=== PATIENT | male | born 1960 | race Caucasian/White ===

== ENCOUNTER 2016-09-10 19:29 | Emergency (ER) | payer OTHER ==
[~2016-09-10] VITALS: Ht 180.3 cm; Wt 109.5 kg
[~2016-09-10 19:29] MED LIST: ASPI81TA28 PO; FAMO20TA11 PO; LISI20TA55 PO; MELO15TA3 PO; METO1TAB69 PO; MULT-506 PO; SERT-234 PO
[2016-09-10 19:35] VITALS: BP 168/100; PULSE 64; TEMP 36.7; O2SAT 97; Ht 180.3 cm; Wt 109.5 kg
--- NOTE | 2016-09-10 19:52 | EMERGENCY ROOM VISIT NOTE ---
ED Visit Note First contact with patient: 19:41 CHIEF COMPLAINT: Finger laceration HISTORY OF PRESENT ILLNESS: This 56-year-old male patient presents to the emergency department ambulatory after cutting the right third finger just prior to arrival. The patient states that he was cutting brass with a chop saw when a bug landed on his back, causing him to jump and cut his finger with a saw. The bleeding has stopped. Denies weakness or numbness of the finger. The patient has full range of motion of the fingers. The patient rates the pain as sharp and in 7/10. The patient denies any other injuries. The patient's tetanus shot is up to date. REVIEW OF SYSTEMS: A 6 system review of systems was completed with positives and pertinent negatives listed in the HPI. ALLERGIES: No known drug allergies MEDICATIONS: See med list PMH: GERD, hypertension SOCIAL HISTORY: The patient lives locally with his family. He is a smoker. He denies alcohol use. PHYSICAL EXAM: Vital Signs: Reviewed Nurse's notes, vital signs stable. GENERAL : This is a 56-year-old male, in no acute distress, well developed, well nourished. SKIN: There is a 1.5 cm long laceration on the distal aspect of the right third finger. It does not extend through the nail. The edges gape apart with traction. There is no foreign material in the wound and it looks clean. There is minimal bleeding. No deep structures such as tendons, bones, or significant blood vessels are seen in the base of the wound. Extension and flexion of the finger is full and strong. Full range of motion of the wrist and other fingers. Capillary refill less than 2 seconds. Normal sensation to light and sharp touch. RADIOGRAPHIC FINDINGS: RIGHT THIRD FINGER 3 VIEWS CLINICAL HISTORY: Right third finger pain status post trauma PATIENT CUT THE TIP OF FINGER ON SAW COMPARISON: None. DISCUSSION: 3 views reveal no acute fractures or dislocations. There is a tiny density adjacent the volar base of the middle phalanx. This is felt to be old given the reported mechanism of injury. No radiopaque foreign bodies are visualized. IMPRESSION: No acute fractures or dislocations. No radiopaque foreign bodies identified. EMERGENCY DEPARTMENT COURSE: I examined the patient. X-ray of the finger was obtained and read by radiology with no acute fractures of the finger. Verbal consent was obtained to perform the procedure. Using sterile technique the wound was cleansed with Betadine. A 1-1 solution of bupivacaine and ml of 1% buffered lidocaine was used to perform a digital block to anesthetize the patient. The area was sterilely draped. Once the patient was anesthetized, the wound was copiously irrigated under pressure with sterile saline. The wound was explored and there were no deep structures injured. The laceration was repaired using 7 simple interrupted 5-0 nylon sutures. The patient tolerated the procedure well. Hemostasis was achieved. The area was cleaned with sterile saline and dressed with bacitracin ointment and bandage. The patient was given a prescription for prophylactic Keflex. The patient was discharged home in good condition. DIAGNOSIS: Finger laceration Problem List Medical Problems: (1) ALCOHOL ABUSE-UNSPEC Status: Chronic (2) HYPERTENSION NOS Status: Chronic (3) VARIANTS OF MIGRAINE W/O INTRACTABLE MIGRAINE Status: Chronic Current/Historical Medications Scheduled Amlodipine (Norvasc), 5 MG PO DAILY Aspirin (Aspirin Ec), 81 MG PO DAILY Cephalexin Monohydrate (Keflex), 500 MG PO QID Divalproex Sodium (Depakote), 500 MG PO DAILY Famotidine (Pepcid), 20 MG PO DAILY Lisinopril/Hctz (Prinzide 20-25MG), 2 TAB PO DAILY Lisinopril/Hctz (Zestoretic 20MG/12.5MG), 2 TAB PO DAILY Meloxicam (Mobic), 15 MG PO DAILY Metoprolol Succ (Toprol Xl) (Toprol-Xl ), 100 MG PO DAILY Multivitamin (Multivitamin), 1 TAB PO DAILY Sertraline (Zoloft), 150 MG PO DAILY Simvastatin (Zocor), 20 MG PO QPM Allergies Coded Allergies: No Known Allergies (Unverified , 02/06/13) Vital Signs Date Time Temp Pulse Resp B/P Pulse Ox O2 Delivery O2 Flow Rate FiO2 09/10/16 19:35 36.7 64 18 168/100 97 Room Air Departure Information Impression Primary Impression: Finger laceration Dispostion Home / Self-Care Condition GOOD Prescriptions Cephalexin Monohydrate (Keflex) 500 Mg Cap 500 MG PO QID for 5 Days, #20 CAP Prov: Janie Fleming ., ANDREW 09/10/16 Referrals Mike Suazo Jr,D.O. (PCP) Patient Instructions My [facility] Additional Instructions You have received 7 sutures on your finger. These sutures are NOT dissolvable and WILL need to be removed by a health care provider in 10-12 days. You can return to the Emergency Department or contact your Primary Care Provider to have the sutures removed. Proper wound care is essential for adequate wound healing and infection prevention. You can shower and clean the wound with soap and water. Do not scour over the wound, pat dry with a towel. Do not submerse the wound (i.e. bathe or dish wash) until the sutures have been removed. You can use an antibiotic ointment with a dressing over the wound for the next 3-4 days. After this time you may leave the wound dry and open to the air. If crust develops over the wound you can use a Q-tip to apply a 1:1 peroxide:water solution to clean the wound. Look for signs of infection of the wound including: increased pain, swelling, foul discharge, streaking, or increased temperature. If any of these are noticed you should return to the Emergency Department for further assessment and treatment. As with any laceration you may have received nerve damage to the surrounding tissues. This damage may or may not be permanent. You should keep the area covered with sunscreen for the first 6 months to 1 year when at risk for exposure to help minimize scarring. You can also use scar reducing creams or Vitamin E oil to help minimize scarring. For pain control, you can use the following [id number] medicines (if >12 yo): - Regular strength (325mg/tab) Tylenol (acetaminophen) 2 tabs every 4-6 hours as needed. Do not exceed 12 tablets in a 24 hour period. Avoid taking more than 4 grams (4000 mg) of Tylenol per day. This includes any other sources of acetaminophen you may take on a regular basis. - Regular strength (200 mg/tab) Advil (ibuprofen) 1-2 tabs every 4-6 hours as needed. Do not exceed a dose of 3200 mg per day. Return to the emergency department if your symptoms worsen despite treatment course outlined above. Problem Qualifiers Primary Impression: Finger laceration Encounter type: initial encounter Qualified Codes: S61.219A - Laceration without foreign body of unspecified finger without damage to nail, initial encounter
[2016-09-10] MEDS ORDERED: XYLOCAINE 1%/SOD BICARB 20 ML VIAL INFIL ONE (20:00)
[2016-09-10] MEDS ORDERED: BUPIVACAINE 0.5 % 5 MG/1 ML MPF 30ML VIAL INFIL ONE (20:00)
--- NOTE | 2016-09-10 20:14 | DIAGNOSTIC IMAGING REPORT ---
RIGHT THIRD FINGER 3 VIEWS CLINICAL HISTORY: Right third finger pain status post trauma PATIENT CUT THE TIP OF FINGER ON SAW COMPARISON: None. DISCUSSION: 3 views reveal no acute fractures or dislocations. There is a tiny density adjacent the volar base of the middle phalanx. This is felt to be old given the reported mechanism of injury. No radiopaque foreign bodies are visualized. IMPRESSION: No acute fractures or dislocations. No radiopaque foreign bodies identified. Electronically signed by: Francisco Linn M.D. 09/10/2016 8:13 PM Dictated Date/Time: 09/10/2016 8:11 PM
[2016-09-10] MEDS ORDERED: LISI-787 PO (20:43)
[2016-09-10] MEDS ORDERED: SIMV20TA2 PO (20:43)
[2016-09-10] MEDS ORDERED: AMLO-110 PO (20:45)
[2016-09-10] MEDS ORDERED: CEPHALEXIN MONOHYDRATE 250 MG CAP PO ONE (20:45)
[2016-09-10] MEDS ORDERED: DIVA500T59 PO (20:45)
[2016-09-10] MEDS ORDERED: CEPH500C PO (20:52)
[2016-09-10] MEDS ORDERED: METO100T14 PO (20:58)
== END 2016-09-10 21:01 | disposition home or self-care (01) ==
LOC: C.EDB 19:30 → C.EDD 21:01
DX: S61.212A Laceration without foreign body of right middle finger without damage to nail, initial encounter (principal); W27.0XXA Contact with workbench tool, initial encounter; I10 Essential (primary) hypertension; F17.200 Nicotine dependence, unspecified, uncomplicated; Z79.82 Long term (current) use of aspirin

== ENCOUNTER 2016-12-07 15:27 | Emergency (ER) | payer OTHER ==
[~2016-12-07] VITALS: Ht 177.8 cm; Wt 113.2 kg
[~2016-12-07 15:27] MED LIST changes: +AMLO-110 PO; +DIVA500T59 PO; +LISI-787 PO; -LISI20TA55 PO; +METO100T14 PO; -METO1TAB69 PO; -MULT-506 PO; +SIMV20TA2 PO
[2016-12-07 15:36] VITALS: Ht 177.8 cm; Wt 113.2 kg
[2016-12-07] MEDS ORDERED: XYLOCAINE 1%/SOD BICARB 20 ML VIAL INFIL ONE (15:45)
--- NOTE | 2016-12-07 15:47 | EMERGENCY ROOM VISIT NOTE ---
ED Visit Note First contact with patient: 15:39 CHIEF COMPLAINT: Right second finger laceration at work today HISTORY OF PRESENT ILLNESS: Patient is a left-hand dominant 56-year-old white male who presents to the emergency department for evaluation of a laceration to his right second finger that he sustained at work earlier today. He accidentally cut himself on a sharp piece of metal 2 hours ago. A coworker applied a bandage and he was able to get the bleeding to stop. Denies weakness or numbness of the finger. He reports he had a similar laceration just a few months ago. REVIEW OF SYSTEMS: NEUROLOGICAL: No headache, change in mental status, weakness, numbness, or dizziness. GENERAL: No fever or chills, easy fatigue, loss of appetite, or significant weight change. PMH: Electronic medical records are reviewed and summarized as above/below. See Problem List. His tetanus is up-to-date. SOCIAL HISTORY: Patient lives at home. PHYSICAL EXAM: Vital Signs: Reviewed Nurse's notes. There is a 2 cm long laceration on the finger pad of the right second finger. The edges gape apart with traction. There is no foreign material in the wound and it looks clean. There is no bleeding. No deep structures such as tendons or nerves are seen in the base of the wound. Extension and flexion of the finger is full and strong. EMERGENCY DEPARTMENT COURSE: Using sterile technique, saline and Betadine cleansing, and 1% lidocaine anesthesia, the laceration was repaired with 7, 5-0 nylon sutures. I do not suspect retained foreign body, nerve, vascular or tendinous injury. Problem List Medical Problems: (1) ALCOHOL ABUSE-UNSPEC Status: Chronic (2) HYPERTENSION NOS Status: Chronic (3) VARIANTS OF MIGRAINE W/O INTRACTABLE MIGRAINE Status: Chronic Current/Historical Medications Scheduled Amlodipine (Norvasc), 5 MG PO DAILY Aspirin (Aspirin Ec), 81 MG PO DAILY Divalproex Sodium (Depakote), 500 MG PO DAILY Famotidine (Pepcid), 20 MG PO DAILY Lisinopril/Hctz (Zestoretic 20MG/12.5MG), 2 TAB PO DAILY Meloxicam (Mobic), 15 MG PO DAILY Metoprolol Tartrate (Lopressor) (Lopressor), 100 MG PO BID Sertraline (Zoloft), 150 MG PO DAILY Simvastatin (Zocor), 20 MG PO QPM Allergies Coded Allergies: No Known Allergies (Unverified , 02/06/13) Vital Signs Date Time Temp Pulse Resp B/P Pulse Ox O2 Delivery O2 Flow Rate FiO2 12/07/16 15:36 53 18 142/82 90 Room Air Departure Information Impression Primary Impression: Laceration of finger Additional Impression: Work related injury Referrals No Doctor, Assigned (PCP) Patient Instructions My [facility] Additional Instructions Keep wound clean and dry. Do not allow any crusting or dried blood to accumulate on sutures. If this occurs, use a 1:1 solution of hydrogen peroxide/ water on a Q-tip to clean the wound. Use an antibiotic ointment for 3-4 days, then let wound dry. Suture removal in 12-14 days. Return sooner for any signs of infection (increasing redness, swelling, drainage). Ice and elevate for swelling and pain. Ibuprofen 600 mg and Tylenol 1000 mg every 6 hrs for pain. Problem Qualifiers
[2016-12-07 16:30] VITALS: BP 135/85; PULSE 54; O2SAT 94
[2016-12-07] MEDS ORDERED: METH2.5T PO (16:38)
== END 2016-12-07 16:31 | disposition home or self-care (01) ==
LOC: C.EDB 15:29 → C.EDD 16:31
DX: S61.210A Laceration without foreign body of right index finger without damage to nail, initial encounter (principal); W26.8XXA Contact with other sharp object(s), not elsewhere classified, initial encounter; I10 Essential (primary) hypertension; Z79.82 Long term (current) use of aspirin; Z79.899 Other long term (current) drug therapy

== ENCOUNTER → 2017-04-03 | Outpatient (CLI) | payer OTHER ==
[~2017-04-03] MED LIST changes: +METH2.5T PO
[2017-04-03 18:54] LABS: ALT/SGPT 73 U/L (12-78); AST/SGOT 30 U/L (15-37); BLOOD UREA NITROGEN 30 mg/dl (7-18); BUN/CREATININE RATIO 30.8 (10-20); CARBON DIOXIDE 29 mmol/L (21-32); CHLORIDE 107 mmol/L (98-107); CREATININE 0.96 mg/dl (0.60-1.40); GLUCOSE 98 mg/dl (70-99); POTASSIUM 3.8 mmol/L (3.5-5.1); SODIUM 141 mmol/L (136-145)
[2017-04-03 19:50] LABS: BASO % 1.2 %; BASO ABS # 0.08 K/uL (0-0.2); COMPLETE YES; EOS % 5.2 %; HEMATOCRIT 41.2 % (42-52); IG% 0.1 %; LYMPH % 40.5 %; LYMPH ABS # 2.78 K/uL (1.2-3.4); MEAN CELL VOLUME 106.5 fL (80-100); MEAN CORPUSCULAR HEMOGLOBIN 39.5 pg (25-34); MEAN CORPUSCULAR HGB CONC 37.1 g/dl (32-36); MONO % 9.2 %; NEUT % 43.8 %; PLATELET COUNT 152 K/uL (130-400); RED BLOOD COUNT 3.87 M/uL (4.7-6.1); WHITE BLOOD COUNT 6.87 K/uL (4.8-10.8)
== END | disposition home or self-care (01) ==
LOC: C.LAB 18:13
DX: M19.90 Unspecified osteoarthritis, unspecified site (principal)

== ENCOUNTER → 2017-12-16 | Outpatient (CLI) | payer OTHER ==
[2017-12-16 09:33] LABS: BASO % 1.6 %; BASO ABS # 0.07 K/uL (0-0.2); EOS % 5.2 %; EOS ABS # 0.22 K/uL (0-0.5); HEMATOCRIT 40.3 % (42-52); HEMOGLOBIN 14.8 g/dL (14.0-18.0); IG# 0.01 K/uL (0.00-0.02); LYMPH % 35.7 %; LYMPH ABS # 1.52 K/uL (1.2-3.4); MEAN CELL VOLUME 105.2 fL (80-100); MEAN CORPUSCULAR HEMOGLOBIN 38.6 pg (25-34); MEAN CORPUSCULAR HGB CONC 36.7 g/dl (32-36); MEAN PLATELET VOLUME 11.9 fL (7.4-10.4); NEUT % 50.3 %; NEUT ABS # 2.14 K/uL (1.4-6.5); PLATELET COUNT 140 K/uL (130-400); RED CELL DISTRIBUTION WIDTH CV 16.5 % (11.5-14.5); RED CELL DISTRIBUTION WIDTH SD 62.7 fL (36.4-46.3); WHITE BLOOD COUNT 4.26 K/uL (4.8-10.8)
[2017-12-16 09:58] LABS: BLOOD UREA NITROGEN 21 mg/dl (7-18); CREATININE 0.72 mg/dl (0.60-1.40); GLUCOSE 134 mg/dl (70-99)
[2017-12-16 09:59] LABS: AST/SGOT 35 U/L (15-37); CALCIUM 8.5 mg/dl (8.5-10.1); CARBON DIOXIDE 30 mmol/L (21-32); POTASSIUM 4.1 mmol/L (3.5-5.1); SODIUM 141 mmol/L (136-145)
[2017-12-16 10:02] LABS: ALT/SGPT 81 U/L (12-78); CHOLESTEROL 111 mg/dl (0-200); LDL CHOLESTEROL CALCULATED 47 mg/dl
[2017-12-16 10:51] LABS: HEP C IGG 13 YRS+OLDER_RFLX NEG (NEG)
[2017-12-20 07:26] LABS: QUANTIF MITOGEN-NIL >10.00 IU/ML; QUANTIFERON NEGATIVE (NEGATIVE); QUANTIFERON NIL 0.03 IU/ML
== END | disposition home or self-care (01) ==
LOC: C.LAB 09:04
DX: L40.50 Arthropathic psoriasis, unspecified (principal)

== ENCOUNTER 2021-12-13 09:02 | Inpatient (IN) ==
[2021-12-13] MEDS ORDERED: SODIUM CHLORIDE 0.9% 1000ML 1,000 ML IV STA (09:23)
--- NOTE | 2021-12-13 09:27 | Emergency Department Note ---
Impression & Plan Influenza, Breath shortness ED Provider Note NAME: MIMA PEREZ AGE: 61 SEX: M : 1960 ARRIVES VIA: Walk-In INFORMANT: Patient ED PROVIDER(S): Leander Romero DO CHIEF COMPLAINT: cough and fever HPI: Patient is a 61-year-old male with a past medical history of hypertension, hyperlipidemia that presents to the ER for symptoms that started 3 days ago. He admits to cough, runny nose, and congestion. He has been having fevers of 101. Associated with this he has had some shortness of breath. He denies any belly pain, nausea, vomiting, or diarrhea. He does have some dysuria but denies any urgency or frequency. Does not believe that he has been around anybody has been sick recently. No other exacerbating or remitting factors that he can think of. ROS: See above HPI for pertinent positives & negatives. A total of 10 systems reviewed and were otherwise negative. PAST MEDICAL HISTORY:See Below PAST SURGICAL HISTORY:See Below FAMILY HISTORY:See Below SOCIAL HISTORY:See Below HOME MEDICATIONS:See Below ALLERGIES:See Below VITALS:See Below PHYSICAL EXAMINATION: GENERAL: Sitting up in bed, alert, well appearing, well nourished, no distress, cough EYE EXAM: normal conjunctiva. PERRL and EOM's grossly intact. OROPHARYNX: no exudate, no erythema, lips, buccal mucosa, and tongue normal and mucous membranes are moist NECK: supple, no nuchal rigidity, no adenopathy, non-tender LUNGS: Clear to auscultation. Normal chest wall mechanics HEART: no murmurs, S1 normal and S2 normal ABDOMEN: abdomen soft, non-tender, normo-active bowel sounds, no masses, no rebound or guarding. UPPER EXTREMITIES: upper extremities are grossly normal. LOWER EXTREMITIES: No pitting edema. NEURO EXAM: Normal sensorium, cranial nerves II-XII grossly intact, normal speech, no gross weakness of arms, no gross weakness of legs. MEDICAL DECISION MAKING: Patient is a 61-year-old male who presents ER for upper respiratory symptoms and short of breath. He is found be hypoxic at 85 to 86% on room air. He was placed on 2 to 3 L nasal cannula. Trended back up to low 90s. IV was established blood work was obtained. Labs show no significant leukocytosis or anemia. BMP along with LFTs bilirubin lipase was unremarkable. Troponin was negative. COVID was negative. Flu a positive. Valproic was low. He was discussed with the hospitalist and admitted on nasal cannula for further work- up. Chest x-ray was obtained and CT of the chest was obtained due to the hilar adenopathy which was unremarkable. Does show diffuse interstitial pneumonitis likely viral and consequently was not covered with antibiotics. Triage Nursing notes reviewed. Limited review of prior medical records performed Vital Signs: reviewed and remarkable for HTN Differential diagnosis: Differential diagnoses includes but is not limited to pneumonia, bronchitis, COPD/Asthma exacerbation, pneumothorax, pulmonary embolism, congestive heart failure, acute coronary syndrome ER treatment provided: See below Diagnostics interpreted by me: ECG: Sinus bradycardia rate of 52 Normal axis No PVCs QTC 420 Cardiac Monitoring: An order was placed for continuous cardiac monitoring. The monitor shows a rate of 53 with sinus rhythm. Laboratory studies: As stated above and show below. Imaging studies: CT of the chest as described above Portable AP of chest was unremarkable Consultation(s): Discussed with hospitalist for further evaluation Dr. Crandall Procedures: none Critical Care: I have personally spent 33 minutes of critical care time in the direct management of this patient. This includes bedside care, interpretation of diagnostic studies, and testing, discussion with consultants, patient, and family members, and other required patient management activities. This 33 minutes is in excess of all separately billable procedures. Past Med/Surg History Medical History (Updated 12/13/21 @ 13:31 by Nabil Schmidt MD) Aldridge's esophagus Bipolar disorder Diabetes mellitus GERD (gastroesophageal reflux disease) Hyperlipidemia Hypertension Obesity (BMI 30-39.9) Psoriatic arthritis Social History Smoking Status: Current every day smoker Tobacco Type: Cigarettes Feels Safe at Home: Yes Allergies Allergies Allergy/AdvReac Type Severity Reaction Status Date / Time No Known Allergies Allergy Verified 12/13/21 10:05 Home Meds Home Medications Medication Instructions Recorded Confirmed adalimumab 10 mg/0.1 mL See Rx Instructions .ROUTE .COMPLEX 01/21/20 12/13/21 subcutaneous syringe kit (Humira(CF)) amlodipine 5 mg tablet 5 mg PO QAM 01/21/20 12/13/21 aspirin 81 mg tablet,delayed 81 mg PO QAM 01/21/20 12/13/21 release atorvastatin 20 mg tablet 20 mg PO HS 01/21/20 12/13/21 celecoxib 100 mg capsule 100 mg PO BID 01/21/20 12/13/21 divalproex 500 mg tablet,extended 500 mg PO HS 01/21/20 12/13/21 release 24 hr lisinopril 20 2 tab PO QAM 01/21/20 12/13/21 mg-hydrochlorothiazide 12.5 mg tablet metoprolol tartrate 100 mg tablet 100 mg PO BID 01/21/20 12/13/21 omeprazole 40 mg capsule,delayed 40 mg PO QAM 01/21/20 12/13/21 release empagliflozin 25 mg tablet 25 mg PO QAM 12/13/21 12/13/21 (Jardiance) famotidine 40 mg tablet 40 mg PO QAM 12/13/21 12/13/21 metformin 500 mg tablet,extended 1,000 mg PO BID 12/13/21 12/13/21 release 24 hr Results & Data (ED) Vital Signs Vital Signs - 24 hr 12/13/21 09:08 12/13/21 09:51 12/13/21 11:00 Pulse Rate 54 L Pulse Rate [Apical] 47 L 47 L Respiratory Rate 20 12 20 Respiratory Effort / Characteristics Non-Labored Respiratory Depth Normal Respiratory Pattern Blood Pressure 183/82 H Blood Pressure [Right Arm] 180/94 H 144/82 H Blood Pressure Mean 115 Blood Pressure Mean [Right Arm] 122 102 Pulse Oximetry 93 92 93 Oxygen Delivery Method Room Air Room Air Room Air Oxygen Flow Rate Sepsis Recent Fever Within 48 Hours No Sepsis New/Unexplained Change in Mental Status N/A Sepsis Action Taken by Nursing No Action Required 12/13/21 12:15 12/13/21 14:30 Pulse Rate Pulse Rate [Apical] 46 L 51 L Respiratory Rate 15 22 Respiratory Effort / Characteristics Non-Labored Spontaneous Respiratory Depth Normal Respiratory Pattern Regular Blood Pressure Blood Pressure [Right Arm] 142/85 H Blood Pressure Mean Blood Pressure Mean [Right Arm] 104 Pulse Oximetry 87 L 94 Oxygen Delivery Method Room Air Nasal Cannula Oxygen Flow Rate 3 Sepsis Recent Fever Within 48 Hours Sepsis New/Unexplained Change in Mental Status Sepsis Action Taken by Nursing Laboratory Data Result diagrams: 12/13/21 09:40 12/13/21 09:40 Lab Results 12/13/21 12/13/21 12/13/21 Range/Units 09:40 09:40 09:40 WBC 5.81 (4.8-10.8) K/uL RBC 4.29 L (4.7-6.1) M/uL Hgb 16.9 (14.0-18.0) g/dL Hct 45.9 (42-52) % MCV 107.0 H (80-100) fL MCH 39.4 H (25-34) pg MCHC 36.8 H (32-36) g/dL RDW Std Deviation 65.4 H (36.4-46.3) fL RDW Coeff of Jonathan 17.0 H (11.5-14.5) % Plt Count 118 L (130-400) K/uL MPV 11.1 H (7.4-10.4) fL Immature Gran % (Auto) 0.3 % Neut % (Auto) 54.5 % Lymph % (Auto) 33.7 % [place] % (Auto) 8.1 % Eos % (Auto) 2.9 % Baso % (Auto) 0.5 % Neut # (Auto) 3.16 (1.4-6.5) K/uL Lymph # (Auto) 1.96 (1.2-3.4) K/uL [place] # (Auto) 0.47 (0.11-0.59) K/uL Eos # (Auto) 0.17 (0-0.5) K/uL Baso # (Auto) 0.03 (0-0.2) K/uL Immature Gran # (Auto) 0.02 (0.00-0.02) K/uL Sodium 141 (136-145) mmol/L Potassium 3.7 (3.5-5.1) mmol/L Chloride 102 (98-107) mmol/L Carbon Dioxide 31 (21-32) mmol/L Anion Gap 8 (3-11) BUN 19 (6-23) mg/dl Creatinine 0.59 L (0.6-1.4) mg/dl Est Cr Clr Drug Dosing 158.8 ml/min Est GFR ( Amer) 128.4 ml/min Est GFR (Non-Af Amer) 110.8 ml/min BUN/Creatinine Ratio 32.2 H (10-20) Glucose 90 (70-99(Fasting)) mg/dl Calcium 9.1 (8.5-10.1) mg/dl Total Bilirubin 0.8 (0.2-1.0) mg/dl AST 23 (13-39) U/L ALT 37 (7-52) U/L Alkaline Phosphatase 49 (34-104) U/L Troponin I High Sens 6.9 (0-20) pg/ml Total Protein 7.6 (6.0-8.3) gm/dl Albumin 4.0 (3.4-5.0) gm/dl Globulin 3.6 (2.5-4.0) gm/dl Albumin/Globulin Ratio 1.1 (0.9-2) Lipase 14 (11-82) U/L Valproic Acid (50-100) mcg/ml SARS-CoV-2 (PCR) (Negative) Influenza Type A (PCR) (Neg) Influenza Type B (PCR) (Neg) RSV (RT-PCR) (Neg) 12/13/21 12/13/21 12/13/21 Range/Units 09:40 09:40 12:20 WBC (4.8-10.8) K/uL RBC (4.7-6.1) M/uL Hgb (14.0-18.0) g/dL Hct (42-52) % MCV (80-100) fL MCH (25-34) pg MCHC (32-36) g/dL RDW Std Deviation (36.4-46.3) fL RDW Coeff of Jonathan (11.5-14.5) % Plt Count (130-400) K/uL MPV (7.4-10.4) fL Immature Gran % (Auto) % Neut % (Auto) % Lymph % (Auto) % [place] % (Auto) % Eos % (Auto) % Baso % (Auto) % Neut # (Auto) (1.4-6.5) K/uL Lymph # (Auto) (1.2-3.4) K/uL [place] # (Auto) (0.11-0.59) K/uL Eos # (Auto) (0-0.5) K/uL Baso # (Auto) (0-0.2) K/uL Immature Gran # (Auto) (0.00-0.02) K/uL Sodium (136-145) mmol/L Potassium (3.5-5.1) mmol/L Chloride (98-107) mmol/L Carbon Dioxide (21-32) mmol/L Anion Gap (3-11) BUN (6-23) mg/dl Creatinine (0.6-1.4) mg/dl Est Cr Clr Drug Dosing ml/min Est GFR ( Amer) ml/min Est GFR (Non-Af Amer) ml/min BUN/Creatinine Ratio (10-20) Glucose (70-99(Fasting)) mg/dl Calcium (8.5-10.1) mg/dl Total Bilirubin (0.2-1.0) mg/dl AST (13-39) U/L ALT (7-52) U/L Alkaline Phosphatase (34-104) U/L Troponin I High Sens 6.6 (0-20) pg/ml Total Protein (6.0-8.3) gm/dl Albumin (3.4-5.0) gm/dl Globulin (2.5-4.0) gm/dl Albumin/Globulin Ratio (0.9-2) Lipase (11-82) U/L Valproic Acid 25 L (50-100) mcg/ml SARS-CoV-2 (PCR) NEGATIVE (Negative) Influenza Type A (PCR) Positive A* (Neg) Influenza Type B (PCR) Negative (Neg) RSV (RT-PCR) Negative (Neg) Administered Medications Discontinued Medications Sodium Chloride (Nss 1000ml) 1,000 mls @ 999 mls/hr IV .Q1H1M STA Stop: 12/13/21 10:23 Last Infusion: 12/13/21 11:05 Dose: 0 mls/hr Documented by: [id number] Admin: 12/13/21 09:51 Dose: 999 mls/hr Documented by: [id number] Ioversol (Optiray 320 100ml) 95 ml IV ONCE ONE Stop: 12/13/21 11:31 Last Admin: 12/13/21 11:26 Dose: 95 ml Documented by: [id number] Methylprednisolone (Methylprednisolone 40 Mg/Ml Vial) 20 mg IV NOW STA Stop: 12/13/21 13:18 Last Admin: 12/13/21 13:53 Dose: 20 mg Documented by: [id number] Oseltamivir Phosphate (Oseltamivir Phosphate 75 Mg Cap) 75 mg PO NOW STA; Protocol Stop: 12/13/21 13:02 Last Admin: 12/13/21 13:52 Dose: 75 mg Documented by: [id number] Imaging Data Radiologist's Impression: Chest X-Ray 12/13/21 09:24 SINGLE VIEW CHEST CLINICAL HISTORY: Atypical chest pain. FINDINGS: An AP, portable, upright chest radiograph is compared to study dated 01/21/2020. Correlation is made with chest CT dated 02/23/2013. The examination is degraded by portable technique and apical lordotic positioning. The heart is top normal for projection. There is fullness of the shamir. Mild emphysema and chronic interstitial thickening is similar to previous scarring/atelectasis is noted at the lung bases. No airspace consolidation or large pleural effusion is identified. No pneumothorax is seen. The skeletal structures are osteopenic. The bony thorax is grossly intact. IMPRESSION: 1. Emphysematous change with no acute cardiopulmonary abnormality. 2. There is nonspecific fullness of the shamir which may may represent enlargement of the central pulmonary arteries. Correlation with a contrast-enhanced chest CT is recommended to assess for underlying adenopathy or mass lesion. ACT 112: Negative or not required by law. Electronically signed by: Kamron Coppola M.D. 12/13/2021 10:[address] 12/13/21 11:[address] WITH CONTRAST CT DOSE: 700.29 mGy.cm HISTORY: Acute fever with chest pain ? mass in r lower lung curently w/ flu TECHNIQUE: Multiaxial CT images of the chest were performed following the IV administration of 95 cc of Optiray. A dose lowering technique was utilized adhering to the principles of ALARA. COMPARISON: Chest radiograph of same day, chest CT 02/23/2013 FINDINGS: Normal thyroid. There are a few mildly prominent nonenlarged mediastinal and hilar lymph nodes which are likely reactive. No pathologically enlarged lymph nodes by CT size criteria. The heart is normal in size without pericardial effusion. Extensive coronary artery calcifications. Atherosclerosis of the thoracic aorta without aneurysm. Mild descending thoracic aortic tortuosity. The opacified pulmonary artery is within normal limits. No pneumothorax, pleural effusion or overt pulmonary edema. Moderate bilateral bronchial wall thickening with mild mucous plugging. Mild patchy groundglass and tree-in-bud nodules. The tree-in-bud nodules are most pronounced within the basal right lower lobe. Mild nonspecific distal esophageal wall thickening. Hepatic steatosis. Unremarkable soft tissues. Healed chronic bilateral rib fractures. IMPRESSION: 1. Findings suggestive of bronchitis with mild mucous plugging. Additionally, there are multilobar mild bilateral groundglass opacities with intermixed tree-in-bud nodules compatible with an infectious or inflammatory pneumonitis/bronchiolitis. 2. No pathologically enlarged lymph nodes. 3. Extensive coronary artery calcifications. 4. Hepatic steatosis. ACT 112: Negative or not required by law. Electronically signed by: Brandin Muse M.D. 12/13/2021 11:42 AM Discharge Plan Visit Data Chief Complaint: Illness Stated Complaint: FEVER, COUGH ED Provider: Leander Romero Discharge Problem: Influenza, Breath shortness Discharge Instructions Molly/Other Patient Handouts: ED Influenza (Adult) Activity Restrictions/Additional Instructions: Please follow up with your primary care doctor with in the next 24 hours. Any worsening of your symptoms, please return to the ED immediately. This includes any fevers greater than 100.4, worsening pain, chest pain, shortness breath, persistent nausea, vomiting, unable to eat or drink, or any other concerning signs or symptoms from your standpoint. You were found to have a blood pressure greater than 120 systolic over 90 diastolic. Due to the new Medicare guidelines, we are now recommending that you follow up with your primary care doctor in regards to this elevated blood pressure. Please obtain a pulse oximeter. Any reading less than 90 you should return to the ER immediately. Forms Stand Alone Forms: [facility] Prescriptions Prescriptions: No Action atorvastatin 20 mg tablet 20 mg PO HS RF: 0 lisinopril-hydrochlorothiazide 20-12.5 mg tablet 2 tab PO QAM RF: 0 metoprolol tartrate 100 mg tablet 100 mg PO BID RF: 0 amlodipine 5 mg tablet 5 mg PO QAM RF: 0 omeprazole 40 mg capsule,delayed release(DR/EC) 40 mg PO QAM RF: 0 aspirin 81 mg Tablet,Delayed Release (Dr/Ec) 81 mg PO QAM RF: 0 divalproex 500 mg tablet extended release 24 hr 500 mg PO HS RF: 0 celecoxib 100 mg capsule 100 mg PO BID RF: 0 Humira(CF) 10 mg/0.1 mL Syringe Kit See Rx Instructions .ROUTE .COMPLEX RF: 0 famotidine 40 mg tablet 40 mg PO QAM RF: 0 metformin 500 mg tablet extended release 24 hr 1,000 mg PO BID RF: 0 Jardiance 25 mg tablet 25 mg PO QAM RF: 0 Referrals Referrals: Mike Suazo Jr, [Primary Care Provider] -
[2021-12-13 09:54] LABS: Basophils # (auto) 0.03 K/uL (0-0.2); Basophils % (auto) 0.5 %; Eosinophils # (auto) 0.17 K/uL (0-0.5); Eosinophils % (auto) 2.9 %; Hematocrit (blood only) 45.9 % (42-52); Hemoglobin 16.9 g/dL (14.0-18.0); Immature Granulocytes # (auto) 0.02 K/uL (0.00-0.02); Immature Granulocytes % (auto) 0.3 %; Lymphocytes # (auto) 1.96 K/uL (1.2-3.4); Lymphocytes % (auto) 33.7 %; Mean Corpuscular Hemoglobin 39.4 pg (25-34); Mean Corpuscular Hgb Conc 36.8 g/dL (32-36); Mean Platelet Volume 11.1 fL (7.4-10.4); Monocytes # (auto) 0.47 K/uL (0.11-0.59); Monocytes % (auto) 8.1 %; Neutrophils # (auto) 3.16 K/uL (1.4-6.5); Neutrophils % (auto) 54.5 %; Platelet Count 118 K/uL (130-400); RDW Standard Deviation 65.4 fL (36.4-46.3); Red Blood Count 4.29 M/uL (4.7-6.1); White Blood Count 5.81 K/uL (4.8-10.8)
--- NOTE | 2021-12-13 10:15 | XRay Report ---
SINGLE VIEW CHEST CLINICAL HISTORY: Atypical chest pain. FINDINGS: An AP, portable, upright chest radiograph is compared to study dated 01/21/2020. Correlation is made with chest CT dated 02/23/2013. The examination is degraded by portable technique and apical l ordotic positioning. The heart is top normal for projection. There is fullness of the shamir. Mild emph ysema and chronic interstitial thickening is similar to previous scarring/atelectasis is noted at the lung bases. No airspace consolidation or large pleural effusion is identified. No pneumothorax is se en. The skeletal structures are osteopenic. The bony thorax is grossly intact. IMPRESSION: 1. Emphysematous change with no acute cardiopulmonary abnormality. 2. There is nonspecific fullness of the shamir which may may represent enlargement of the central pulmo nary arteries. Correlation with a contrast-enhanced chest CT is recommended to assess for underlying adenopathy or mass lesion. ACT 112: Negative or not required by law. Electronically signed by: Kamron Coppola M.D. 12/13/2021 10:14 AM
[2021-12-13 10:29] LABS: Albumin Globulin Ratio 1.1 (0.9-2); BUN Creatinine Ratio 32.2 (10-20); Bilirubin,Total 0.8 mg/dl (0.2-1.0); Calcium 9.1 mg/dl (8.5-10.1); Creatinine Clr Calc Pharmacy 158.8 ml/min; Est GFR (African American) 128.4 ml/min; Est GFR (Non-African American) 110.8 ml/min; Globulin 3.6 gm/dl (2.5-4.0); Potassium 3.7 mmol/L (3.5-5.1); Total Protein 7.6 gm/dl (6.0-8.3)
[2021-12-13 10:34] LABS: Influenza B virus by PCR Negative (Neg); RSV by PCR Negative (Neg); SARS CoV2 RNA(COVID-19) InHosp NEGATIVE (Negative)
[2021-12-13 10:50] LABS: Influenza A virus by PCR Positive (Neg)
[2021-12-13] MEDS ORDERED: OPTIRAY 320 100ml IV ONE (11:30)
--- NOTE | 2021-12-13 11:43 | CT Scan Report ---
CHEST CT WITH CONTRAST CT DOSE: 700.29 mGy.cm HISTORY: Acute fever with chest pain ? mass in r lower lung curently w/ flu TECHNIQUE: Multiaxial CT images of the chest were performed following the IV administration of 95 cc of Optiray. A dose lowering technique was utilized adhering to the principles of ALARA. COMPARISON: Chest radiograph of same day, chest CT 02/23/2013 FINDINGS: Normal thyroid. There are a few mildly prominent nonenlarged mediastinal and hilar lymph no sofia which are likely reactive. No pathologically enlarged lymph nodes by CT size criteria. The heart is normal in size without pericardial effusion. Extensive coronary artery calcifications. Atheroscler osis of the thoracic aorta without aneurysm. Mild descending thoracic aortic tortuosity. The opacifie d pulmonary artery is within normal limits. No pneumothorax, pleural effusion or overt pulmonary edema. Moderate bilateral bronchial wall thicken ing with mild mucous plugging. Mild patchy groundglass and tree-in-bud nodules. The tree-in-bud nodul es are most pronounced within the basal right lower lobe. Mild nonspecific distal esophageal wall thickening. Hepatic steatosis. Unremarkable soft tissues. Hea led chronic bilateral rib fractures. IMPRESSION: 1. Findings suggestive of bronchitis with mild mucous plugging. Additionally, there are multilobar mi ld bilateral groundglass opacities with intermixed tree-in-bud nodules compatible with an infectious or inflammatory pneumonitis/bronchiolitis. 2. No pathologically enlarged lymph nodes. 3. Extensive coronary artery calcifications. 4. Hepatic steatosis. ACT 112: Negative or not required by law. Electronically signed by: Brandin Muse M.D. 12/13/2021 11:42 AM
[2021-12-13] MEDS ORDERED: OSELTAMIVIR PHOSPHATE 75 MG CAP PO STA (13:01)
--- NOTE | 2021-12-13 13:06 | History & Physical Report ---
Date of Service December 13, 2021 Assessment & Plan (1) Influenza A: Plan: Patient reports exposure to coworkers from [facility] Start Tamiflu 75 mg p.o. twice daily (2) Secondary bacterial pneumonia: Plan: Patient is immunocompromised being on Humira Start ceftriaxone 2 g IV daily Azithromycin 500 mg IV daily Duonebs every 4 hours while awake and every 2 hours when necessary. Pulmicort Respules 0.5 mg inhaled twice daily Methylprednisolone 20 mg IV every 8 hours Guaifenesin extended release 12 mg p.o. twice daily Sputum gram stain and culture (3) Diabetes mellitus: Plan: Hold Jardiance and metformin Place on Accu-Cheks before meals and at bedtime with NovoLog coverage per scale Check hemoglobin A1c (4) GERD (gastroesophageal reflux disease): Plan: GERD/Aldridge's esophagus- Continue omeprazole 40 mg every morning and famotidine 20 mg at bedtime (5) Aldridge's esophagus: Plan: See above (6) Psoriatic arthritis: Plan: Patient is on Humira in the outpatient setting, which next dose will be due tomorrow, which he knows will be held Continue Celebrex 100 mg p.o. twice daily (7) Hyperlipidemia: Plan: Continue atorvastatin 20 mg at bedtime (8) Hypertension: Plan: Hypertension/extensive coronary calcifications noted on CT angiography-no known history of CAD- Continue amlodipine 5 mg every morning, aspirin 81 mg every morning and Toprol tartrate 4 mg p.o. twice daily Hold lisinopril/HCTZ High sensitivity troponin negative x 2 (9) Obesity (BMI 30-39.9): Plan: Noted his risk factor for vascular disease and diabetes (10) Bipolar disorder: Plan: Continue divalproex 5 mg at bedtime History of Present Illness Chief Complaint: The patient presents to the emergency department with symptoms of fever up to 101.4, cough, shortness of breath, dyspnea on exertion, generalized fatigue and muscle aches that began about 4 days ago, and have progressively worsened. He is also decreased oral intake with liquids and solids to no appetite. He also complains of nonbloody loose stools Primary Care Provider: Mike Suazo Jr, DO The patient is a 61-year-old male with a past medical history including psoriatic arthritis, hypertension, hyperlipidemia, bipolar disorder, diabetes mellitus, GERD, Aldridge's esophagus and obesity. He presents to the emergency department as noted above. He does report exposures to sick people at work who are from [facility]. Significant laboratory testing in the emergency department: Influenza a positive, COVID-19 negative, influenza B- and RSV nega tive. CT angiography/chest x-ray negative for PE, mucous plugging associated with bronchitis and bronchiolitis, with a enlarged fatty liver. Allergies Allergy/AdvReac Type Severity Reaction Status Date / Time No Known Allergies Allergy Verified 12/13/21 10:05 Home Medications Medication Instructions Recorded Confirmed Type adalimumab 10 mg/0.1 mL See Rx Instructions .ROUTE .COMPLEX 01/21/20 12/13/21 History subcutaneous syringe kit (Humira(CF)) amlodipine 5 mg tablet 5 mg PO QAM 01/21/20 12/13/21 History aspirin 81 mg tablet,delayed 81 mg PO QAM 01/21/20 12/13/21 History release atorvastatin 20 mg tablet 20 mg PO HS 01/21/20 12/13/21 History celecoxib 100 mg capsule 100 mg PO BID 01/21/20 12/13/21 History divalproex 500 mg tablet,extended 500 mg PO HS 01/21/20 12/13/21 History release 24 hr lisinopril 20 2 tab PO QAM 01/21/20 12/13/21 History mg-hydrochlorothiazide 12.5 mg tablet metoprolol tartrate 100 mg tablet 100 mg PO BID 01/21/20 12/13/21 History omeprazole 40 mg capsule,delayed 40 mg PO QAM 01/21/20 12/13/21 History release empagliflozin 25 mg tablet 25 mg PO QAM 12/13/21 12/13/21 History (Jardiance) famotidine 40 mg tablet 40 mg PO QAM 12/13/21 12/13/21 History metformin 500 mg tablet,extended 1,000 mg PO BID 12/13/21 12/13/21 History release 24 hr Past Med/Surg History Medical History (Updated 12/13/21 @ 13:31 by Nabil Schmidt MD) Aldridge's esophagus Bipolar disorder Diabetes mellitus GERD (gastroesophageal reflux disease) Hyperlipidemia Hypertension Obesity (BMI 30-39.9) Psoriatic arthritis Social History Smoking Status: Current every day smoker Tobacco Type: Cigarettes Feels Safe at Home: Yes Review of Systems Review of Systems: The patient denies chest pain, palpitations, lower extremity swelling, sore throat, fevers, chills, sweats, nausea, vomiting, diarrhea , constipation, abdominal pain, pelvic pain, blood in urine or stool, dysuria, urinary frequency or urgency, memory loss, loss of consciousness, rash, abnormal bruising or bleeding, imbalance, focal weakness, numbness or tingling in arms or legs, back or neck pain, or night sweats. The review of systems is otherwise negative other than for that already noted above, and at least 10 systems have been reviewed. Physical Exam Physical Exam: The patient is awake, alert and oriented 3, well developed and well nourished, normocephalic and atraumatic, lying in bed and in no acute distress. HEENT--PERRL, EOMI, mucous membranes and oropharynx dry. Neck--supple. No JVD. No bruits. Thyroid normal, trachea midline, no adenopathy. Heart--normal S1 and S2. No murmurs, rubs or gallops. Lungs--coarse breath sounds bilaterally. No respiratory distress, no accessory muscle use. Abdomen--normal bowel sounds and soft. Nontender. Nondistended. Obese Extremities--no cyanosis or clubbing. No edema. Dermatologic--normal skin turgor, normal color, no abnormal lymph nodes, no rash. Neurologic--cranial nerves II through XII grossly intact. Rheumatologic--normal range of motion. Psychiatric--normal affect. Results & Data Results & Data ([facility]) Vital Signs (Past 12 Hours) Vital Signs Pulse Pulse Resp BP BP Pulse Ox 12/13/21 12:15 46 L 15 87 L 12/13/21 11:00 47 L 20 144/82 H 93 12/13/21 09:51 47 L 12 180/94 H 92 12/13/21 09:08 54 L 20 183/82 H 93 Laboratory Results Laboratory Results WBC 5.81 K/uL (4.8-10.8) 12/13/21 09:40 RBC 4.29 M/uL (4.7-6.1) L 12/13/21 09:40 Hgb 16.9 g/dL (14.0-18.0) 12/13/21 09:40 Hct 45.9 % (42-52) 12/13/21 09:40 MCV 107.0 fL (80-100) H 12/13/21 09:40 MCH 39.4 pg (25-34) H 12/13/21 09:40 MCHC 36.8 g/dL (32-36) H 12/13/21 09:40 RDW Std Deviation 65.4 fL (36.4-46.3) H 12/13/21 09:40 RDW Coeff of Jonathan 17.0 % (11.5-14.5) H 12/13/21 09:40 Plt Count 118 K/uL (130-400) L 12/13/21 09:40 MPV 11.1 fL (7.4-10.4) H 12/13/21 09:40 Immature Gran % (Auto) 0.3 % 12/13/21 09:40 Neut % (Auto) 54.5 % 12/13/21 09:40 Lymph % (Auto) 33.7 % 12/13/21 09:40 Alger % (Auto) 8.1 % 12/13/21 09:40 Eos % (Auto) 2.9 % 12/13/21 09:40 Baso % (Auto) 0.5 % 12/13/21 09:40 Neut # (Auto) 3.16 K/uL (1.4-6.5) 12/13/21 09:40 Lymph # (Auto) 1.96 K/uL (1.2-3.4) 12/13/21 09:40 Alger # (Auto) 0.47 K/uL (0.11-0.59) 12/13/21 09:40 Eos # (Auto) 0.17 K/uL (0-0.5) 12/13/21 09:40 Baso # (Auto) 0.03 K/uL (0-0.2) 12/13/21 09:40 Immature Gran # (Auto) 0.02 K/uL (0.00-0.02) 12/13/21 09:40 Sodium 141 mmol/L (136-145) 12/13/21 09:40 Potassium 3.7 mmol/L (3.5-5.1) 12/13/21 09:40 Chloride 102 mmol/L (98-107) 12/13/21 09:40 Carbon Dioxide 31 mmol/L (21-32) 12/13/21 09:40 Anion Gap 8 (3-11) 12/13/21 09:40 BUN 19 mg/dl (6-23) 12/13/21 09:40 Creatinine 0.59 mg/dl (0.6-1.4) L 12/13/21 09:40 Est Cr Clr Drug Dosing 158.8 ml/min 12/13/21 09:40 Est GFR ( Amer) 128.4 ml/min 12/13/21 09:40 Est GFR (Non-Af Amer) 110.8 ml/min 12/13/21 09:40 BUN/Creatinine Ratio 32.2 (10-20) H 12/13/21 09:40 Glucose 90 mg/dl (70-99(Fasting)) 12/13/21 09:40 Calcium 9.1 mg/dl (8.5-10.1) 12/13/21 09:40 Total Bilirubin 0.8 mg/dl (0.2-1.0) 12/13/21 09:40 AST 23 U/L (13-39) 12/13/21 09:40 ALT 37 U/L (7-52) 12/13/21 09:40 Alkaline Phosphatase 49 U/L (34-104) 12/13/21 09:40 Troponin I High Sens 6.6 pg/ml (0-20) 12/13/21 12:20 Total Protein 7.6 gm/dl (6.0-8.3) 12/13/21 09:40 Albumin 4.0 gm/dl (3.4-5.0) 12/13/21 09:40 Globulin 3.6 gm/dl (2.5-4.0) 12/13/21 09:40 Albumin/Globulin Ratio 1.1 (0.9-2) 12/13/21 09:40 Lipase 14 U/L (11-82) 12/13/21 09:40 Valproic Acid 25 mcg/ml (50-100) L 12/13/21 09:40 SARS-CoV-2 (PCR) NEGATIVE (Negative) 12/13/21 09:40 Influenza Type A (PCR) Positive (Neg) A* 12/13/21 09:40 Influenza Type B (PCR) Negative (Neg) 12/13/21 09:40 RSV (RT-PCR) Negative (Neg) 12/13/21 09:40 Impressions Chest X-Ray 12/13/21 09:24 SINGLE VIEW CHEST CLINICAL HISTORY: Atypical chest pain. FINDINGS: An AP, portable, upright chest radiograph is compared to study dated 01/21/2020. Correlation is made with chest CT dated 02/23/2013. The examination is degraded by portable technique and apical lordotic positioning. The heart is top normal for projection. There is fullness of the shamir. Mild emphysema and chronic interstitial thickening is similar to previous scarring/atelectasis is noted at the lung bases. No airspace consolidation or large pleural effusion is identified. No pneumothorax is seen. The skeletal structures are osteopenic. The bony thorax is grossly intact. IMPRESSION: 1. Emphysematous change with no acute cardiopulmonary abnormality. 2. There is nonspecific fullness of the shamir which may may represent enlargement of the central pulmonary arteries. Correlation with a contrast-enhanced chest CT is recommended to assess for underlying adenopathy or mass lesion. ACT 112: Negative or not required by law. Electronically signed by: Kamron Coppola M.D. 12/13/2021 10:[address] 12/13/21 11:[address] WITH CONTRAST CT DOSE: 700.29 mGy.cm HISTORY: Acute fever with chest pain ? mass in r lower lung curently w/ flu TECHNIQUE: Multiaxial CT images of the chest were performed following the IV administration of 95 cc of Optiray. A dose lowering technique was utilized adhering to the principles of ALARA. COMPARISON: Chest radiograph of same day, chest CT 02/23/2013 FINDINGS: Normal thyroid. There are a few mildly prominent nonenlarged mediastinal and hilar lymph nodes which are likely reactive. No pathologically enlarged lymph nodes by CT size criteria. The heart is normal in size without pericardial effusion. Extensive coronary artery calcifications. Atherosclerosis of the thoracic aorta without aneurysm. Mild descending thoracic aortic tortuosity. The opacified pulmonary artery is within normal limits. No pneumothorax, pleural effusion or overt pulmonary edema. Moderate bilateral bronchial wall thickening with mild mucous plugging. Mild patchy groundglass and tree-in-bud nodules. The tree-in-bud nodules are most pronounced within the basal right lower lobe. Mild nonspecific distal esophageal wall thickening. Hepatic steatosis. Unremarkable soft tissues. Healed chronic bilateral rib fractures. IMPRESSION: 1. Findings suggestive of bronchitis with mild mucous plugging. Additionally, there are multilobar mild bilateral groundglass opacities with intermixed tree-in-bud nodules compatible with an infectious or inflammatory pneumonitis/bronchiolitis. 2. No pathologically enlarged lymph nodes. 3. Extensive coronary artery calcifications. 4. Hepatic steatosis. ACT 112: Negative or not required by law. Electronically signed by: Brandin Muse M.D. 12/13/2021 11:42 AM Code Status & VTE Plan Code Status Full code VTE Prophylaxis Plan VTE Prophylaxis will be ordered: Yes PG Care Time/CCT Total # of Minutes Spent Total Time Spent with Patient: Total time spent is greater than 50% in coordination of care (as documented) at patient's floor/unit and/or counseling patient: Coding Level of Care Code 33699 Initial Inpt Care Lvl 3 Diagnoses Influenza A J10.1 Secondary bacterial pneumonia J15.9 Bipolar disorder F31.9 GERD (gastroesophageal reflux disease) K21.9 Aldridge's esophagus K22.70 Psoriatic arthritis L40.50 Hyperlipidemia E78.5 Hypertension I10 Obesity (BMI 30-39.9) E66.9 Diabetes mellitus E11.9
[2021-12-13] MEDS ORDERED: GLUCAGON FOR INJ 1 MG VIAL SQ PRN (15:44)
[2021-12-13] MEDS ORDERED: GLUCOSE 40% GEL 15 GM TUBE PO PRN (15:44)
[2021-12-13] MEDS ORDERED: ONDANSETRON INJ 2 MG/ML 2 ML VIAL IV PRN (15:44)
[2021-12-13] MEDS ORDERED: CARBOHYDRATES FOR HYPOGLYCEMIA PO PRN (15:44)
[2021-12-13] MEDS ORDERED: ACETAMINOPHEN 325 MG TAB PO PRN (15:44)
[2021-12-13] MEDS ORDERED: GLUCOSE 10 TABS/TUBE PO PRN (15:44)
[2021-12-13] MEDS ORDERED: DEXTROSE 50% 50 ML SYRINGE IV PRN (15:44)
[2021-12-13] MEDS: ALBUT/IPRATROP 3MG/0.5MG NEB 3 ML VIAL NEB SCH ×2 (16:46→19:48)
[2021-12-13] MEDS: INSULIN ASPART PER UNIT SC SCH ×2 (16:55→22:06)
[2021-12-13] MEDS: cefTRIAXone SODIUM 2,000 MG in DEXTROSE 5% 50 ML IV SCH (16:56)
[2021-12-13] MEDS ORDERED: PNEUMOCOCCAL POLYSACCHARIDES 25 MCG/0.5 ML VIAL/SYR IM ONE (17:00)
[2021-12-13] MEDS: ENOXAPARIN INJ 40 MG/0.4 ML SYR SQ SCH (17:02)
[2021-12-13] MEDS: AZITHROMYCIN 500 MG in DEXTROSE 5% 250 ML IV SCH (17:30)
[2021-12-13] MEDS: BUDESONIDE 0.5 MG/2 ML VIAL (PULMICORT) NEB SCH (19:48)
[2021-12-13] MEDS ORDERED: OSELTAMIVIR PHOSPHATE SUSP 75 MG/12.5 ML UDP PO SCH (21:00)
[2021-12-13] MEDS: methylPREDNISolone 20 MG in SYRINGE 0 ML IV SCH (22:07)
[2021-12-13] MEDS: DIVALPROEX EXTENDED RELEASE 500 MG TAB PO SCH (22:08)
[2021-12-13] MEDS: NICOTINE 21 MG/24 HR TDSY TD SCH (22:08)
[2021-12-13] MEDS: CELECOXIB 100 MG CAP PO SCH (22:08)
[2021-12-13] MEDS: ATORVASTATIN 20 MG TAB PO SCH (22:09)
[2021-12-13] MEDS: METOPROLOL TARTRATE 100 MG TAB PO SCH (22:09)
[2021-12-13] MEDS: OSELTAMIVIR PHOSPHATE 75 MG CAP PO SCH (22:39)
[2021-12-13] MEDS: guaiFENesin 600 MG TABCR PO SCH (22:39)
[2021-12-14] MEDS: NICOTINE 21 MG/24 HR TDSY TD SCH ×2 (00:20→18:02)
[2021-12-14 05:43] LABS: Appearance Urine Clear (Clear); Bacteria Urine Automated Negative (Negative); Bilirubin Urine Negative (Negative); Blood Urine Negative (Negative); Cast Urine Automated 0 /lpf (0-5); Color Urine Yellow; Epithelial Cell Urine Auto >30 /lpf (0-5); Glucose Urine UA 3+ (Negative); Ketones Urine 2+ (Negative); Leukocyte Esterase Urine Negative (Negative); Nitrite Urine Negative (Negative); Protein Urine 3+ (Negative); RBC Urine Automated 0-4 /hpf (0-4); Specific Gravity Urine 1.044 (1.000-1.030); Urobilinogen Urine Negative (Negative); pH Urine 5.5 (4.5-7.5)
[2021-12-14] MEDS: methylPREDNISolone 20 MG in SYRINGE 0 ML IV SCH (05:55)
[2021-12-14] MEDS: BUDESONIDE 0.5 MG/2 ML VIAL (PULMICORT) NEB SCH (07:15)
[2021-12-14] MEDS: ALBUT/IPRATROP 3MG/0.5MG NEB 3 ML VIAL NEB SCH ×4 (07:15→19:35)
[2021-12-14 07:20] LABS: Basophils # (auto) 0.02 K/uL (0-0.2); Basophils % (auto) 0.3 %; Hematocrit (blood only) 43.3 % (42-52); Hemoglobin 15.7 g/dL (14.0-18.0); Immature Granulocytes # (auto) 0.02 K/uL (0.00-0.02); Immature Granulocytes % (auto) 0.3 %; Lymphocytes # (auto) 1.15 K/uL (1.2-3.4); Lymphocytes % (auto) 18.3 %; Mean Corpuscular Hemoglobin 38.5 pg (25-34); Mean Corpuscular Hgb Conc 36.3 g/dL (32-36); Mean Corpuscular Volume 106.1 fL (80-100); Mean Platelet Volume 11.6 fL (7.4-10.4); Monocytes # (auto) 0.32 K/uL (0.11-0.59); Monocytes % (auto) 5.1 %; Neutrophils # (auto) 4.76 K/uL (1.4-6.5); Platelet Count 141 K/uL (130-400); RDW Coefficient of Variation 16.7 % (11.5-14.5); RDW Standard Deviation 63.5 fL (36.4-46.3); Red Blood Count 4.08 M/uL (4.7-6.1); White Blood Count 6.27 K/uL (4.8-10.8)
[2021-12-14] MEDS: OSELTAMIVIR PHOSPHATE 75 MG CAP PO SCH ×2 (08:25→20:31)
[2021-12-14] MEDS: guaiFENesin 600 MG TABCR PO SCH ×2 (08:25→20:30)
[2021-12-14] MEDS: CELECOXIB 100 MG CAP PO SCH ×2 (08:25→20:29)
[2021-12-14] MEDS: METOPROLOL TARTRATE 100 MG TAB PO SCH ×2 (08:26→20:30)
[2021-12-14] MEDS: ENOXAPARIN INJ 40 MG/0.4 ML SYR SQ SCH (08:27)
[2021-12-14] MEDS: INSULIN ASPART PER UNIT SC SCH ×4 (08:36→20:30)
[2021-12-14 08:44] LABS: Albumin Globulin Ratio 1.1 (0.9-2); Albumin Level 3.7 gm/dl (3.4-5.0); BUN Creatinine Ratio 34.5 (10-20); Bilirubin,Total 0.6 mg/dl (0.2-1.0); Calcium 8.7 mg/dl (8.5-10.1); Est GFR (African American) 132.2 ml/min; Est GFR (Non-African American) 114.1 ml/min; Globulin 3.3 gm/dl (2.5-4.0); Magnesium 1.6 mg/dl (1.7-2.4)
[2021-12-14] MEDS ORDERED: amLODIPine BESYLATE 5 MG TAB PO SCH (09:00)
[2021-12-14] MEDS ORDERED: ASPIRIN 81 MG ECTAB PO SCH (09:00)
[2021-12-14] MEDS ORDERED: LISINOPRIL/HCTZ 20/12.5MG 1 TAB TAB PO SCH (09:00)
[2021-12-14] MEDS ORDERED: FAMOTIDINE 40 MG TABLET PO SCH (09:00)
[2021-12-14] MEDS ORDERED: PANTOprazole 40 MG TAB PO SCH (09:00)
[2021-12-14 09:27] LABS: Estimated Average Glucose 117 mg/dl; Hemoglobin A1C 5.7 % (4.5-5.6)
--- NOTE | 2021-12-14 16:58 | Hospitalist Progress Note ---
Date of Service December 14, 2021 Assessment & Plan (1) Influenza A: Plan: Patient reports exposure to coworkers from [facility] Continue Tamiflu 75 mg p.o. twice daily (2) Secondary bacterial pneumonia: Plan: Possible diagnosis although procalcitonin and CXR with focal area of consolidation. Agree with antibiotics in immunocompromised state. Patient is immunocompromised being on Humira Continue ceftriaxone 2 g IV daily, Azithromycin 500 mg IV daily for short 5 day course Duonebs every 4 hours while awake and every 2 hours when necessary. Stop steroids - no history of COPD or asthma Guaifenesin extended release 12 mg p.o. twice daily Sputum gram stain and culture (3) Diabetes mellitus: Plan: Hold Jardiance and metforminbA1 Place on Accu-Cheks before meals and at bedtime with NovoLog coverage per scale Check hemoglobin A1c (4) GERD (gastroesophageal reflux disease): Plan: GERD/Aldridge's esophagus- Continue omeprazole 40 mg every morning and famotidine 20 mg at bedtime (5) Aldridge's esophagus: Plan: See above (6) Psoriatic arthritis: Plan: Patient is on Humira in the outpatient setting, which next dose will be due tomorrow, which he knows will be held Continue Celebrex 100 mg p.o. twice daily (7) Hyperlipidemia: Plan: Continue atorvastatin 20 mg at bedtime (8) Hypertension: Plan: Hypertension/extensive coronary calcifications noted on CT angiography-no known history of CAD- Continue amlodipine 5 mg every morning, aspirin 81 mg every morning and Toprol tartrate 4 mg p.o. twice daily Continue lisinopril/HCTZ High sensitivity troponin negative x 2 (9) Obesity (BMI 30-39.9): Plan: Noted his risk factor for vascular disease and diabetes (10) Bipolar disorder: Plan: Continue divalproex 5 mg at bedtime Plan: VTE Prophylaxis - Lovenox 40mg SQ daily Diet - heart healthy, T2DM Disposition - stable for downgrade to med/surg Admission and Anticipated Discharge Date Admission Date: December 13, 2021 Subjective Patient feels better than on admission. Able to cough up a lot of phlegm using the nebulizer and flutter valve. No fevers or chills. Short of breath on exertion. No chest pain. Keen to get out of hospital soon as possible. Review of Systems Review of Systems: All systems reviewed & are unremarkable except as noted in Subjective Physical Exam Constitutional: WD/WN, vitals as above Eyes: + anicteric sclerae; normal pupil size ENMT: external ear and nose normal, oropharynx normal Neck: trachea midline, no thyromegaly Respiratory: normal respiratory effort, lungs clear to auscultation Cardiovascular: RRR, no murmur, no edema Gastrointestinal (Abdomen): normal bowel sounds, soft, nontender, no hepatosplenomegaly Musculoskeletal: no cyanosis or clubbing, extremities motor strength 5/5 Skin: no rashes, warm and dry Neurologic: moves all extremities and awake; not confused Psychiatric: A+Ox3, euthymic affect Results & Data Results & Data ([facility]) Vital Signs (Past 12 Hours) Vital Signs Temp Pulse Pulse Resp BP BP Pulse Ox 12/14/21 15:58 52 L 12/14/21 15:46 60 18 90 12/14/21 11:49 36.9 C 58 L 20 143/72 H 88 L 12/14/21 11:04 56 L 20 96 12/14/21 08:00 52 L 12/14/21 07:15 52 L 20 94 12/14/21 07:04 36.9 C 53 L 18 172/81 H 94 PG Care Time/CCT Total # of Minutes Spent Total Time Spent with Patient: Total time spent is greater than 50% in coordination of care (as documented) at patient's floor/unit and/or counseling patient: Coding Level of Care Code 33942 Subseq Hosp Care Lvl 2 Diagnoses Influenza A J10.1 Secondary bacterial pneumonia J15.9 Diabetes mellitus E11.9 GERD (gastroesophageal reflux disease) K21.9 Aldridge's esophagus K22.70 Psoriatic arthritis L40.50 Hyperlipidemia E78.5 Hypertension I10 Obesity (BMI 30-39.9) E66.9 Bipolar disorder F31.9
[2021-12-14] MEDS: cefTRIAXone SODIUM 2,000 MG in DEXTROSE 5% 50 ML IV SCH (17:04)
[2021-12-14] MEDS: AZITHROMYCIN 500 MG in DEXTROSE 5% 250 ML IV SCH (17:43)
[2021-12-14] MEDS: ATORVASTATIN 20 MG TAB PO SCH (20:29)
[2021-12-14] MEDS: DIVALPROEX EXTENDED RELEASE 500 MG TAB PO SCH (20:30)
--- NOTE | 2021-12-15 07:24 | Discharge Summary ---
Date of Service December 15, 2021 Admission HPI Per Admitting Provider The patient is a 61-year-old male with a past medical history including psoriatic arthritis, hypertension, hyperlipidemia, bipolar disorder, diabetes mellitus, GERD, Aldridge's esophagus and obesity. He presents to the emergency department as noted above. He does report exposures to sick people at work who are from [facility]. Significant laboratory testing in the emergency department: Influenza a positive, COVID-19 negative, influenza B- and RSV negative. CT angiography/chest x-ray negative for PE, mucous plugging associated with bronchitis and bronchiolitis, with a enlarged fatty liver. Admission Exam Per Admitting Provider The patient is awake, alert and oriented 3, well developed and well nourished, normocephalic and atraumatic, lying in bed and in no acute distress. HEENT--PERRL, EOMI, mucous membranes and oropharynx dry. Neck--supple. No JVD. No bruits. Thyroid normal, trachea midline, no adenopathy. Heart--normal S1 and S2. No murmurs, rubs or gallops. Lungs--coarse breath sounds bilaterally. No respiratory distress, no accessory muscle use. Abdomen--normal bowel sounds and soft. Nontender. Nondistended. Obese Extremities--no cyanosis or clubbing. No edema. Dermatologic--normal skin turgor, normal color, no abnormal lymph nodes, no rash. Neurologic--cranial nerves II through XII grossly intact. Rheumatologic--normal range of motion. Psychiatric--normal affect. Principal Diagnosis influenza A secondary bacterial pna Discharge Exam Patient refused given desire to leave [facility]. Please see yesterday's exam for most up to date objective findings. Discharge Data Allergies Allergy/AdvReac Type Severity Reaction Status Date / Time No Known Allergies Allergy Verified 12/13/21 10:05 Consultations 12/13/21 12:20 ED Decision to Admit Stat Ordered Studies 12/13/21 11:09 CT chest diagnostic w con Stat Hospital Course (1) Influenza A: (1) Influenza A: Plan: Patient reports exposure to coworkers from [facility] Continue Tamiflu 75 mg p.o. twice daily for 3 more days at discharge (2) Secondary bacterial pneumonia: Plan: Possible diagnosis although procalcitonin and CXR with focal area of consolidation. Agree with antibiotics in immunocompromised state. Patient is immunocompromised being on Humira Given CFTX and azithromycin while here before leaving AMA Augmentin sent off to patient's pharmacy alongside azithromycin (3) Diabetes mellitus: Plan: Resume home medications on discharge - metformin and Jardiance (4) GERD (gastroesophageal reflux disease): Plan: GERD/Aldridge's esophagus- Continue omeprazole 40 mg every morning and famotidine 20 mg at bedtime (5) Aldridge's esophagus: Plan: See above (6) Psoriatic arthritis: Plan: Patient is on Humira in the outpatient setting, which next dose will be due tomorrow, which he knows will be held Continue Celebrex 100 mg p.o. twice daily (7) Hyperlipidemia: Plan: Continue atorvastatin 20 mg at bedtime (8) Hypertension: Plan: Hypertension/extensive coronary calcifications noted on CT angiography-no known history of CAD- Continue amlodipine 5 mg every morning, aspirin 81 mg every morning and Toprol tartrate 4 mg p.o. twice daily Continue lisinopril/HCTZ High sensitivity troponin negative x 2 (9) Obesity (BMI 30-39.9): Plan: Noted his risk factor for vascular disease and diabetes (10) Bipolar disorder: Plan: Continue divalproex 5 mg at bedtime Called to patient's room AM of 12/15 because he stated he wanted to leave AMA. We reviewed the risks, benefits, and alternatives of leaving AMA with ongoing secondary bacterial PNA and influenza in his immunocompromised state -- including respiratory/systemic demise including . He demonstrated adequate understanding of these issues and was able to recount them for me / demonstrate how they would effect him specifically. He declined help to set up a PCP, which he does not currently have. I tried to engage in reflective listening, however patient was agitated and did not want to speak about anything other than leaving. As he was able to communicate, understand, rationalize, and appreciate the r/b/a of this situation, he holds adequate capacity -- despite his agitation -- to leave AMA. He was encouraged to return to the hospital with any worsening in symptoms or if he needs help. Total Time Total Time Spent Total Time Spent (In Minutes): 20 Discharge Plan Discharge Items Patient Disposition: Against Medical Advice Reason For Visit: FLUA A, BRONCHITIS, BRONCHIOLITIS, HYPOXIA Activity: Resume your previous activity Non-emergency contact: Primary Care Provider Follow-up/Referrals: Mike Suazo Jr, DO [Primary Care Provider] - Pending Studies at Discharge: No Stand-Alone Forms: My [facility], Smoking Cessation Medications and DC Order Prescriptions: New oseltamivir [Tamiflu] 75 mg Capsule 75 mg PO BID 3 Days Qty: 6 RF: 0 amoxicillin-pot clavulanate 875-125 mg tablet 1 tab PO BID 5 Days Qty: 10 RF: 0 Continued atorvastatin 20 mg tablet 20 mg PO HS RF: 0 lisinopril-hydrochlorothiazide 20-12.5 mg tablet 2 tab PO QAM RF: 0 metoprolol tartrate 100 mg tablet 100 mg PO BID RF: 0 amlodipine 5 mg tablet 5 mg PO QAM RF: 0 omeprazole 40 mg capsule,delayed release(DR/EC) 40 mg PO QAM RF: 0 aspirin 81 mg Tablet,Delayed Release (Dr/Ec) 81 mg PO QAM RF: 0 divalproex 500 mg tablet extended release 24 hr 500 mg PO HS RF: 0 celecoxib 100 mg capsule 100 mg PO BID RF: 0 Humira(CF) 10 mg/0.1 mL Syringe Kit See Rx Instructions .ROUTE .COMPLEX RF: 0 famotidine 40 mg tablet 40 mg PO QAM RF: 0 metformin 500 mg tablet extended release 24 hr 1,000 mg PO BID RF: 0 Jardiance 25 mg tablet 25 mg PO QAM RF: 0 Discharge Orders: Left Against Medical Advice (Routine); Ordered 12/15/21 Ordered By: Leander Appiah Admission Data Admit Date/Time: 12/13/21 13:05 Attending Provider: Gage Castellano Admit Provider: Nabil Schmidt Primary Care Provider: Mike Suazo Jr Other Providers: Nabil Schmidt
[2021-12-15] MEDS: ALBUT/IPRATROP 3MG/0.5MG NEB 3 ML VIAL NEB SCH (07:26)
--- NOTE | 2021-12-15 13:51 | Electrocardiogram Report ---
Test Reason : Blood Pressure : / mmHG Vent. Rate : 052 BPM Atrial Rate : 052 BPM P-R Int : 182 ms QRS Dur : 088 ms QT Int : 452 ms P-R-T Axes : 039 036 046 degrees QTc Int : 420 ms Sinus bradycardia Otherwise normal ECG When compared with ECG of 21-JAN-2020 14:35, No significant change was found Confirmed by Molina Moreno ([id number]) on 12/15/2021 1:51:01 PM Referred By: ED Confirmed By:Molina Moreno
== END 2021-12-15 08:10 | disposition left against medical advice (07) | DRG 195 ==
LOC: ED 09:02 → SUATTDRO 13:05 → 2W 13:05 → 3W 12-14 20:48